=== PATIENT | female | born 1960 | race Native Hawaiian/Other Pacific Islander ===

== ENCOUNTER 2022-06-14 05:23 | Day surgery (SDC) | payer OTHER ==
[2022-06-10 10:47] VITALS: BMI 30.8
[2022-06-14 11:31] VITALS: TEMP 98
[2022-06-14 11:39] VITALS: PULSE 60
[2022-06-14 13:51] VITALS: BP 124/62; RESP 14
== END 2022-06-14 11:55 | disposition home or self-care (01) ==
LOC: JASU-ENDO 05:23
PROVIDERS: ATTEND Internal Medicine Gastroenterology
PROC: 0DBN8ZX Excision of Sigmoid Colon, Via Natural or Artificial Opening Endoscopic, Diagnostic (ICD-10-PCS; principal; 2022-06-14 10:30)
DX: Z12.11 Encounter for screening for malignant neoplasm of colon (principal); K63.5 Polyp of colon; K64.8 Other hemorrhoids; K62.89 Other specified diseases of anus and rectum; K59.89 Other specified functional intestinal disorders
CPT/HCPCS: 88305-TC